=== PATIENT | male | born 1995 | race Two or more races ===

== ENCOUNTER → 2019-12-02 | Outpatient (RCR) | payer OTHER | LOC: M ST 11:19 | PROVIDERS: ATTEND General Practice | DX: Z51.89 Encounter for other specified aftercare (principal); F80.81 Childhood onset fluency disorder ==

== ENCOUNTER 2019-12-04 10:46 | Outpatient (RCR) | payer OTHER | END 2020-01-02 | LOC: M ST 10:46 | PROVIDERS: ATTEND General Practice | DX: F80.81 Childhood onset fluency disorder (principal) ==